=== PATIENT | male | born 1985 ===

== ENCOUNTER 2020-11-19 06:00 | Inpatient (IN) | payer OTHER ==
[~2020-11-19 06:00] MED LIST: EMGALITY P120 MG/1 M; EMGALITY P120 MG/1 M SQ
[2020-11-19] MEDS ORDERED: ULTRAM50 MG PO (09:02)
[2020-11-19] MEDS ORDERED: MIRALAX17 GM PO (09:02)
[2020-11-19] MEDS ORDERED: NEURONTIN300 MG PO (09:02)
[2020-11-19] MEDS ORDERED: TYLENOL ARTHRI650 MG PO (09:02)
[2020-11-20] MEDS ORDERED: PEPCID AC20 MG PO (06:48)
[2020-11-20] MEDS ORDERED: PYRIDIUM200 MG PO (06:48)
[2020-11-20] MEDS ORDERED: BETHANECHOL CHL25 MG PO (06:48)
[2020-11-20] MEDS ORDERED: TAMS0.4C PO (06:48)
== END 2020-11-20 11:50 | disposition home or self-care (01) | DRG 352 ==
LOC: CIR.AMB 06:00 → O/R 20:29
PROVIDERS: ADMIT Surgery; ATTEND Surgery
PROC: 0WQF4ZZ Repair Abdominal Wall, Percutaneous Endoscopic Approach (ICD-10-PCS; 2020-11-19)
PROC: 0YU64JZ Supplement Left Inguinal Region with Synthetic Substitute, Percutaneous Endoscopic Approach (ICD-10-PCS; principal; 2020-11-19 07:00)
DX: K40.90 Unilateral inguinal hernia, without obstruction or gangrene, not specified as recurrent (principal); K42.9 Umbilical hernia without obstruction or gangrene; R33.8 Other retention of urine